=== PATIENT | female | born 1985 | race Two or more races ===

== ENCOUNTER 2018-06-28 11:43 | Emergency (ER) | payer OTHER ==
[~2018-06-28] VITALS: Ht 157.5 cm; Wt 76.2 kg
[2018-06-28 11:56] VITALS: BP 129/82
== END 2018-06-28 17:03 | disposition left against medical advice (07) ==
LOC: ED 15:00
DX: R06.02 Shortness of breath (principal); Z53.21 Procedure and treatment not carried out due to patient leaving prior to being seen by health care provider
CPT/HCPCS: 93005; 99281